=== PATIENT | female | born 1950 | race Caucasian/White ===

== ENCOUNTER 2019-12-05 08:52 | Outpatient (CLI) | payer MEDICARE, SELFPAY ==
--- NOTE | ~2019-12-05 | MM_ITS ---
EXAMINATION: MM screening santhosh BI w fracisco HISTORY: Screening mammogram, history of right breast cancer TECHNIQUE: Craniocaudal and mediolateral oblique 3-D tomosynthesis images were obtained and synthetic 2-D images were generated. CAD analysis was submitted and interpreted. COMPARISON: 11/25/2018, 11/23/2017, 11/16/2016 BREAST PARENCHYMAL COMPOSITION: There are scattered areas of fibroglandular density. FINDINGS: There are stable lumpectomy changes of the right breast. There is no evidence of suspicious mass, calcification, or architectural distortion to suggest malignancy in either breast. There has b een no suspicious interval change. IMPRESSION: 1. No mammographic evidence of malignancy. 2. Recommend routine screening mammography in one year. BI-RADS Category 2: Benign finding(s). Reviewed, dictated and finalized at location A.
== END 2019-12-05 08:53 | disposition home or self-care (01) ==
PROVIDERS: PCP Family Medicine Adolescent Medicine; Visit Provider Internal Medicine
DX: Z12.31 Encounter for screening mammogram for malignant neoplasm of breast (principal)
CPT/HCPCS: 77063; 77067

== ENCOUNTER 2020-04-01 19:11 | Emergency (ER) | payer MEDICARE, SELFPAY ==
--- NOTE | ~2020-04-01 | XR_ITS ---
XR ankle RT min 3V, XR foot RT 2V 04/01/2020 19:51 (accession [id number]), 04/01/2020 19:50 (accession [id number]) Indication: Right ankle and foot pain after injury Procedure: 3 views right ankle and 2 views right foot Comparison: No prior studies for comparison. Findings: There is an oblique nondisplaced medial malleolar fracture. Ankle mortise intact. Mild medi al soft tissue swelling. There are degenerative calcaneal enthesophytes. 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 Impression: 1: Oblique nondisplaced medial malleolar fracture. Reviewed, dictated and finalized at location A. ER TENDER Impression: 1: Oblique nondisplaced medial malleolar fracture. Impression: 1: Oblique nondisplaced medial malleolar fracture.
[2020-04-01 19:19] VITALS: BP 168/87; PULSE 82; RESP 24; TEMP 36.1; O2SAT 100
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
[2020-04-01 20:33] VITALS: BP 138/70; PULSE 78; RESP 18; O2SAT 99
== END 2020-04-01 21:23 | disposition home or self-care (01) ==
PROVIDERS: Emergency Provider Emergency Medicine; PCP Family Medicine Adolescent Medicine
DX: S51.012A Laceration without foreign body of left elbow, initial encounter (principal); S82.54XA Nondisplaced fracture of medial malleolus of right tibia, initial encounter for closed fracture; V48.4XXA Person boarding or alighting a car injured in noncollision transport accident, initial encounter
CPT/HCPCS: 12001; 29515; 73610; 73620; 99284

== ENCOUNTER 2020-10-11 12:34 | Outpatient (CLI) | payer MEDICARE, SELFPAY ==
--- NOTE | ~2020-10-11 | DEXA_ITS ---
Bone Density Report Name: Justina Russ Age: 69 Sex: Female Ethnicity: White Date of : 1950 Indication: osteopenia; prior fracture; cancer; postmenopausal Referring Provider: Sunil Jansen Study: Bone densitometry was performed. Exam Date: October 11, 2020 Accession number: [id number] Bone Density: Region BMD T-score Z-score Classification AP Spine (L1, L2, L4) 0.924 -1.0 1.1 Normal Femoral Neck (Left) 0.850 0.0 1.8 Normal Total Hip (Left) 0.994 0.4 1.9 Normal Total Hip Bilateral Avg 0.990 0.4 1.9 Normal Femoral Neck (Right) 0.863 0.1 1.9 Normal Total Hip (Right) 0.984 0.3 1.8 Normal World Health Organization criteria for BMD impression classify patients as: Normal (T-score at or above -1.0), Osteopenia (T-score between -1.0 and -2.5), or Osteoporosis (T-score at or below -2.5). 10-year Fracture Risk: FRAX not reported because: All T-scores for Spine Total, Hip Total, Femoral Neck at or above -1.0 Previous Exams: Region Exam Age BMD T-score BMD Change BMD Change Date g/cm2 vs Baseline vs Previous AP Spine(L1, L2, L4) 10/11/2020 69 0.924 -1.0 0.052(5.9%)# 0.029(3.3%)* 01/20/2016 65 0.895 -1.3 0.023(2.6%)# 0.023(2.6%)# 05/20/2011 60 0.872 -1.5 Total Hip(Left) 10/11/2020 69 0.994 0.4 0.026(2.7%)# 0.030(3.1%)* 01/20/2016 65 0.964 0.2 -0.004(-0.4%)# -0.004(-0.4%)# 05/20/2011 60 0.968 0.2 Total Hip(Right) 10/11/2020 69 0.984 0.3 0.032(3.3%)# 0.011(1.1%) 01/20/2016 65 0.973 0.3 0.021(2.2%)# 0.021(2.2%)# 05/20/2011 60 0.953 0.1 *Denotes significance at 95% confidence level, LSC for AP Spine = 0.022 g/cm2, LSC for Total Hip = 0.027 g/cm2 Clinical Information Provided by Patient: Has had a low trauma fracture Has used the following medications: Vitamin D, Calcium Has the following medical conditions: Cancer Patient maximum height was 65 Menopause Age: 50 Onset of menses at age 13 Number of children 0 Impression: The patient has normal bone mass. The patient has risk factors, including: previous fracture. No significant bone loss was observed. Discussion: BONE DENSITY IS ABOVE THE MINIMUM DESIRABLE LEVEL AT ALL SKELETAL SITES TESTED. This patient?s bone mineral density is above the minimum desirable level (T-score -1.0 or better) at all sites measured. The patient should follow a healthful lifestyle (good nutrition with adequate calcium and vitamin D, and appropriate w
== END 2020-10-11 12:35 | disposition home or self-care (01) ==
PROVIDERS: PCP Family Medicine Adolescent Medicine; Visit Provider Family Medicine Adolescent Medicine
DX: Z78.0 Asymptomatic menopausal state (principal)
CPT/HCPCS: 77080

== ENCOUNTER → 2020-10-29 14:36 | Outpatient (CLI) | payer MEDICARE, SELFPAY ==
--- NOTE | ~2020-10-29 | XR_ITS ---
XR chest 2V DATE: 10/29/2020 15:04 INDICATION: Cough TECHNIQUE: PA and lateral views COMPARISON: 03/26/2012 2 view chest FINDINGS: Normal heart size. There is aortic unfolding. No hilar or mediastinal enlargement. No pulmonary infiltrate or consolidation, pulmonary vascular congestion or pleural effusion or pneumo thorax. Smaller right breast size and right axillary surgical clips consistent with right partial mastectomy and right axillary node dissection. IMPRESSION: No active cardiopulmonary disease Reviewed, dictated and finalized at location A.
== END ==
PROVIDERS: PCP Family Medicine Adolescent Medicine; Visit Provider Physician Assistant
DX: R05 Cough (principal)
CPT/HCPCS: 71046

== ENCOUNTER 2020-12-06 09:30 | Outpatient (CLI) | payer MEDICARE, SELFPAY ==
--- NOTE | ~2020-12-06 | MM_ITS ---
EXAMINATION: MM screening santhosh BI w fracisco HISTORY: Screening mammogram, history of right breast cancer TECHNIQUE: Craniocaudal and mediolateral oblique 3-D tomosynthesis images were obtained and synthetic 2-D images were generated. CAD analysis was submitted and interpreted. COMPARISON: 12/05/2019, 11/25/2018, 11/23/2017 BREAST PARENCHYMAL COMPOSITION: There are scattered areas of fibroglandular density. FINDINGS: Again noted are stable lumpectomy changes of the right breast. There is no evidence of susp icious mass, calcification, or architectural distortion to suggest malignancy in either breast. There has been no suspicious interval change. IMPRESSION: 1. No mammographic evidence of malignancy. 2. Recommend routine screening mammography in one year. BI-RADS Category 2: Benign finding(s). Reviewed, dictated and finalized at location A.
== END 2020-12-06 09:31 | disposition home or self-care (01) ==
LOC: ANHIMG 09:34
PROVIDERS: PCP Family Medicine Adolescent Medicine; Visit Provider Family Medicine Adolescent Medicine
DX: Z12.31 Encounter for screening mammogram for malignant neoplasm of breast (principal)
CPT/HCPCS: 77063; 77067

== ENCOUNTER 2021-06-17 23:57 | Emergency (ER) | payer MEDICARE, SELFPAY ==
--- NOTE | ~2021-06-17 | XR_ITS ---
EXAMINATION: XR chest 2V DATE: 06/18/2021 00:44 INDICATION: Chest pain. TECHNIQUE: Frontal and lateral views of the chest were obtained. COMPARISON: Chest 2 views 03/26/2012, chest CT 06/18/2021 FINDINGS: There is mild scarring at the lung apices. No pleural effusion or pneumothorax. The heart s ize is normal. There are surgical clips in right axilla. IMPRESSION: 1. Mild scarring at the lung apices. Reviewed, dictated and finalized at location A. RVISOR BRINE
--- NOTE | ~2021-06-17 | CT_ITS ---
EXAMINATION: CTA chest abdomen pelvis DATE: 06/18/2021 01:29 INDICATION: Chest pain. TECHNIQUE: Computed tomographic angiography (CTA) of the chest, abdomen, and pelvis was performed wit h 100 mL Omnipaque-350 intravenous contrast. Automated exposure control and iterative reconstruction technique were employed. The dose-length product was 779.28 mGy-cm. Maximum intensity projection 3D-r econstructions of the aorta and other arteries were constructed by the technologist on a separate wor kstation. COMPARISON: None. FINDINGS: CHEST CTA: The lungs demonstrate mild atelectasis. No pleural effusion. There are nodules in the thyroid measuri ng up to 11 mm, likely not clinically significant. The heart size is normal. No pericardial effusion. There is mild aortic atherosclerosis. There is no pulmonary embolus. There is moderate thoracic spon dylosis. There is mild chronic anterior wedging of multiple vertebral bodies. There is a benign bone island in T3 vertebral body. ABDOMEN AND PELVIS CTA: The liver, gallbladder, spleen, pancreas, and adrenal glands are normal. There is cortical thinning o f the kidneys. There is diverticulosis of the colon without evidence of diverticulitis. There are no dilated loops of bowel. The appendix is normal. There is mild aortic atherosclerosis. There is no sig nificant stenosis of celiac axis, superior mesenteric artery, the renal arteries, or inferior mesente garth artery. There are no pathologically enlarged lymph nodes. There is a calcified fibroid in the [place]. There is no free intraperitoneal fluid. There is severe lumbar spondylosis. IMPRESSION: 1. Mild aortic atherosclerosis. No aneurysm or dissection. Reviewed, dictated and finalized at location A. N TO SWIM INSTRUCTOR
[2021-06-17 23:59] VITALS: BP 186/120; PULSE 115; RESP 18; TEMP 36.6; O2SAT 100
--- NOTE | 2021-06-18 00:06 | ECG_ITS ---
Measurements Intervals [place] Rate: 63 P: 24 UT: 146 QRS: -42 QRSD: 118 T: 107 QT: 415 QTc: 427 Interpretive Statements SINUS RHYTHM WITH OCCASIONAL SUPRAVENTRICULAR PREMATURE COMPLEXES LEFT AXIS DEVIATION [QRS AXIS < -30] PATTERN CONSISTENT WITH PULMONARY DISEASE LEFT VENTRICULAR HYPERTROPHY AND ST-T CHANGE [VOLTAGE CRITERIA PLUS ST/T ABNORMALITY] POSSIBLE SEPTAL MYOCARDIAL INFARCTION , OF INDETERMINATE AGE [30 ms Q WAVE IN V1/V2] ABNORMAL ECG NO PREVIOUS ECG AVAILABLE FOR COMPARISON Electronically Signed On 06-18-2021 13:13:52 PERFORMANCE ARCHITECT by Gonsalo Miranda M.D.
[2021-06-18] MEDS: ASPIRIN 81 MG CHEWABLE TABLET 324 MG PO (00:16)
[2021-06-18 00:31] LABS: Basophils Absolute Auto 0.1 K/mm3 (0.0-0.1); Eosinophils Absolute Auto 0.3 K/mm3 (0-0.3); Eosinophils Percent Auto 3.2 % (0-4.4); Hematocrit 46.9 % (37.0-47.0); Hemoglobin 15.5 g/dL (12.0-15.0); Immature Granulocyte Absolute 0.02 K/mm3 (0.00-0.031); Immature Granulocyte Percent A 0.2 % (0-0.5); Lymphocytes Absolute Auto 3.93 K/mm3 (0.9-3.2); Lymphocytes Percent Auto 48.3 % (18.3-44.2); Mean Corpuscular Hemoglobin 29.8 pg (26-34); Mean Corpuscular Volume 90.2 fl (80-100); Mean Platelet Volume 10.1 fl (7.4-10.4); Monocytes Absolute Auto 0.7 K/mm3 (0.1-0.6); Monocytes Percent Auto 8.8 % (2.6-8.5); Neutrophils Absolute Auto 3.1 K/mm3 (1.3-6.7); Neutrophils Percent Auto 38.5 % (45.5-73.1); Platelet Count Result 363 k/mm3 (150-375); Red Cell Distribution Width 13.5 % (11.5-14.5); White Blood Count 8.1 K/mm3 (4.5-10.0)
[2021-06-18 00:39] LABS: Partial Thromboplastin Time 25.7 SECONDS (22.3-36.8); Prothrombin Time 12.3 Seconds (11.1-14.7)
[2021-06-18 00:40] LABS: Alanine Aminotransferase 25 U/L (4-35); Albumin Level 4.8 g/dL (3.5-5.1); Alkaline Phosphatase 87 U/L (38-126); Anion Gap 7 mmol/L (8-16); Aspartate Amino Transferase 34 U/L (14-36); Bilirubin,Total 0.5 mg/dL (0.2-1.3); Blood Urea Nitrogen 16 mg/dL (7-17); Carbon Dioxide 33 mmol/L (22-30); Chloride 96 mmol/L (98-107); Estimated CRCL calculation 79 ml/min; Estimated Glomerular Filt Rate > 60; Glucose 108 mg/dL (65-110); Lipase 79 U/L (23-300); Potassium 3.4 mmol/L (3.4-5.0); Sodium 136 mmol/L (137-145)
[2021-06-18 00:45] VITALS: BP 181/87; PULSE 71; RESP 15; O2SAT 97
[2021-06-18 00:51] LABS: Troponin I < 0.012 ng/mL (0.000-0.034)
--- NOTE | 2021-06-18 00:59 | ED.CHESTPAIN ---
HPI - Chest Pain General Chief Complaint: Chest Pain Stated Complaint: chest pain Time Seen by Provider: 06/18/21 00:22 Source: patient and RN notes reviewed Mode of arrival: ambulatory Limitations: no limitations History of Present Illness HPI narrative: This is a 70 year old female with history of remote Breast CA and hypertension who presents for evaluation of left chest pain. She states around 8 pm she developed stabbing left anterior chest pain. Patient has been intermittent and last for seconds. She states she feels like something is not right. But she denies nausea, vomiting, fever, cough, dizziness or shortness of breath. She denies history of similar pain. She also noticed that her blood pressure was elevated at home. She only takes hydrochlorothiazid for her hypertension. She does not have pain now but she had pain a few minutes ago. Related Data Home Medications Medication Instructions Recorded Confirmed calcium carbonate-vitamin D3 tablet 04/01/20 06/12/20 [Calcium + D] hydrochlorothiazide 04/01/20 06/12/20 multivit with min-folic acid 1 tablet PO DAILY 04/01/20 06/12/20 [Centrum Adult 50 Fresh-Fruity] nepafenac [Nevanac] 1 drp OPHTHALMIC (EYE) TID 04/01/20 06/12/20 ascorbate calcium (vitamin C) 500 500 mg PO DAILY 04/03/20 06/12/20 mg tablet Allergies Allergy/AdvReac Type Severity Reaction Status Date / Time Sulfa (Sulfonamide Allergy Mild HIVES Verified 06/18/21 00:16 Antibiotics) sulfur dioxide Allergy Unknown Unknown Verified 06/18/21 00:16 Review of Systems Review of Systems: All systems reviewed & are unremarkable except as noted in HPI and below PMFSH Past Medical History Medical History (Updated 06/18/21 @ 04:10 by Dia Nation MD) Breast cancer Closed fracture of medial malleolus of right tibia with routine healing Hypertension Wears glasses Surgical History Surgical History History of breast biopsy 1985 & 1993 History of D&C 1984 & 2001 History of lumpectomy 1999 History of tonsillectomy 1956 Family History Family History Father Hypertension Family history of malignant neoplasm of esophagus Sibling Hypertension Mother Family history of heart disease in male family member before age 55 Other Esophageal cancer Family history of cardiovascular disease Social History Social History Smoking packs per day: 0.5 Smoking cigarettes per day: 10.0 Years smoked: 20 Smoking pack-years: 10.00 Smoking end date: 04/12/99 Alcohol intake: current Drinks per week: 3 Substance use: never Substance use type: does not use Gender identity (if verbalized by the patient): Female Sexual Orientation (if Verbalized by the Patient): Straight or Heterosexual Exam Const: General: no acute distress and alert Eyes: EOM: EOMs intact bilaterally Chest: Chest palpation & inspection: normal inspection of the chest Resp: Effort & Inspection: normal respiratory effort and no retractions Auscultation: clear to auscultation bilaterally Cardio: Rate: regular rate Rhythm: regular rhythm Heart sounds: no murmurs GI: GI Palp: Yes Soft to palpation, No Tenderness to palpation present (GI) and No Guarding due to palpation present (GI) Auscultation: normal bowel sounds Back/Spine/Pelvis: Back: no CVA tenderness Skin: General skin exam: normal color Rashes: no rashes Neuro: General: patient oriented x3, moves all extremities and CN's II-XI intact bilaterally Psych: Mental Status: mental status grossly normal Affect: normal affect Course Reevaluation(s) Reevaluation #1: Patient's pain is atypical and not anginal. She denies any pain. BP has improved. I discussed with patient follow up with PCP for further evaluation. Date: 06/18/21 Time: 04:04 Vital Signs Vital sig
[2021-06-18 01:44] VITALS: BP 196/108; PULSE 62; RESP 12; O2SAT 96
[2021-06-18] MEDS: hydrALAZINE HCL 20 MG/ML VIAL 10 MG IV PUSH (01:51)
[2021-06-18 02:08] VITALS: BP 156/92; PULSE 70; RESP 13; O2SAT 99
[2021-06-18 02:43] VITALS: BP 165/93
[2021-06-18 03:45] LABS: Troponin I 0.014 ng/mL (0.000-0.034)
[2021-06-18 04:02] VITALS: BP 147/96; PULSE 67; RESP 18; O2SAT 97
[2021-06-18 04:13] VITALS: BP 144/74; PULSE 74; RESP 20; TEMP 36.3; O2SAT 99
== END 2021-06-18 04:25 | disposition home or self-care (01) ==
PROVIDERS: Emergency Provider General Practice; PCP Family Medicine Adolescent Medicine
DX: R07.89 Other chest pain (principal); R03.0 Elevated blood-pressure reading, without diagnosis of hypertension; Z85.3 Personal history of malignant neoplasm of breast; I10 Essential (primary) hypertension; Z87.891 Personal history of nicotine dependence; I49.3 Ventricular premature depolarization; R94.31 Abnormal electrocardiogram [ECG] [EKG]; I51.7 Cardiomegaly; I70.0 Atherosclerosis of aorta
CPT/HCPCS: 36415; 71046; 71275; 74174; 80053; 83690; 84484; 85025; 85610; 85730; 93005; 96374; 99284; A9270; J0360; Q9967

== ENCOUNTER 2022-01-26 08:33 | Outpatient (CLI) | payer MEDICARE, SELFPAY ==
--- NOTE | ~2022-01-26 | MM_ITS ---
EXAMINATION: MM screening santhosh BI w fracisco HISTORY: Screening TECHNIQUE: Craniocaudal and mediolateral oblique 3-D tomosynthesis images were obtained and synthetic 2-D images were generated. CAD analysis was submitted and interpreted. COMPARISON: Comparison to multiple prior studies sequentially, with oldest reviewed study dated 04/2015. BREAST PARENCHYMAL COMPOSITION: Breast composed of scattered areas of fibroglandular density FINDINGS: There is developing focal asymmetry in the upper outer quadrant of the right breast with po ssible architectural distortion. The left breast is stable without evidence for malignancy. IMPRESSION: 1. Developing focal asymmetry, upper outer quadrant. 2. Additional mammographic views and possible breast ultrasound are recommended. BI-RADS Category 0: Incomplete: Needs additional imaging evaluation. Reviewed, dictated and finalized at location A. IMPRESSION: 1. Developing focal asymmetry, upper outer quadrant. 2. Additional mammographic views and possible breast ultrasound are recommended . BI-RADS Category 0: Incomplete: Needs additional imaging evaluation.
== END 2022-01-26 08:34 | disposition home or self-care (01) ==
LOC: ANHIMG 08:34
PROVIDERS: PCP Family Medicine Adolescent Medicine; Visit Provider Family Medicine Adolescent Medicine
DX: Z12.31 Encounter for screening mammogram for malignant neoplasm of breast (principal); R92.8 Other abnormal and inconclusive findings on diagnostic imaging of breast
CPT/HCPCS: 77063; 77067

== ENCOUNTER 2022-02-02 11:18 | Outpatient (CLI) | payer MEDICARE, SELFPAY ==
--- NOTE | ~2022-02-02 | MMUS_ITS ---
EXAMINATION: MM diagnostic santhosh RT w fracisco, US breast RT limited HISTORY: Right breast asymmetry on screening mammogram TECHNIQUE: Additional 3-D tomosynthesis images of the right breast were performed and synthetic 2-D i mages were generated. CAD analysis was submitted and interpreted. High resolution limited right breas t ultrasound was performed. COMPARISON: 01/26/2022, 12/06/2020, 12/05/2019, 11/25/2018 FINDINGS: MAMMOGRAPHIC FINDINGS: There is questionable subtle architectural distortion in middle third of the upper outer quadrant of the breast at the 10:00 location approximately 5 cm from the nipple without definite associated mass or calcification. On some images, the appearance is similar to older prior comparison mammograms and the finding somewhat disperses with spot compression. ULTRASOUND: There is no evidence of focal abnormal solid or cystic mass in the vicinity of the mammographic findi ng in question. IMPRESSION: 1. Probably benign findings of the right breast. 2. Recommend 6 month follow-up right diagnostic mammogram and possible ultrasound. BI-RADS category 3, probably benign findings. Reviewed, dictated and finalized at location A. IMPRESSION: 1. Probably benign findings of the right breast. 2. Recommend 6 month follow-up right diagnostic mammogram and possible ultrasou nd. BI-RADS category 3, probably benign findings.
== END 2022-02-02 11:19 | disposition home or self-care (01) ==
LOC: ANHIMG 11:19
PROVIDERS: PCP Family Medicine Adolescent Medicine; Visit Provider Family Medicine Adolescent Medicine
DX: R92.8 Other abnormal and inconclusive findings on diagnostic imaging of breast (principal)
CPT/HCPCS: 76642; 77061; 77065; G0279

== ENCOUNTER 2022-08-10 12:15 | Outpatient (CLI) | payer MEDICARE, SELFPAY ==
--- NOTE | ~2022-08-10 | MMUS_ITS ---
EXAMINATION: MM diagnostic santhosh RT w fracisco, US breast RT limited HISTORY: Six-month follow-up for probably benign possible right breast architectural distortion TECHNIQUE: Craniocaudal, mediolateral, and mediolateral oblique 3-D tomosynthesis images of the right breast were performed and synthetic 2-D images were generated. Spot compression views are also obtai matthias. CAD analysis was submitted and interpreted. High resolution right breast ultrasound was performe d. COMPARISON: Prior mammograms dating back to 11/23/2017 BREAST PARENCHYMAL COMPOSITION: There are scattered areas of fibroglandular density. FINDINGS: MAMMOGRAPHIC FINDINGS: Again seen is a stable, chronic area of possible architectural distortion in the middle third of the upper outer quadrant of the breast at the 10:00 location approximately 5 cm from the nipple. There juarez s been no suspicious interval change. No suspicious mass or calcification are identified. ULTRASOUND: There is no evidence of focal abnormal solid or cystic mass in the vicinity of the mammographic findi ng in question. IMPRESSION: 1. Probably benign right breast findings. 2. Recommend 6 month follow-up diagnostic mammogram and possible ultrasound. BI-RADS category 3, probably benign findings. Reviewed, dictated and finalized at location A. IMPRESSION: 1. Probably benign right breast findings. 2. Recommend 6 month follow-up diagnostic mammogram and possible ultrasound. BI-RADS category 3, probably benign findings.
== END 2022-08-10 12:16 | disposition home or self-care (01) ==
LOC: ANHIMG 12:17
PROVIDERS: PCP Family Medicine Adolescent Medicine; Visit Provider Family Medicine Adolescent Medicine
DX: R92.8 Other abnormal and inconclusive findings on diagnostic imaging of breast (principal)
CPT/HCPCS: 76642; 77061; 77065; G0279

== ENCOUNTER 2023-03-19 12:36 | Outpatient (CLI) | payer MEDICARE, SELFPAY ==
--- NOTE | ~2023-03-19 | MMUS_ITS ---
EXAMINATION: MM diagnostic santhosh BI w fracisco, US breast RT limited HISTORY: Six-month follow-up for probably benign possible right breast architectural distortion. TECHNIQUE: Craniocaudal, mediolateral, and mediolateral oblique 3-D tomosynthesis images of the asifas ts were performed and synthetic 2-D images were generated. CAD analysis was submitted and interpreted . High resolution limited right breast ultrasound was performed. COMPARISON: Prior mammograms dating back to 11/25/2018 BREAST PARENCHYMAL COMPOSITION: There are scattered areas of fibroglandular density. FINDINGS: MAMMOGRAPHIC FINDINGS: Left breast: No suspicious mass, calcification, or architectural distortion are identified to suggest malignancy. There has been no suspicious interval change. Right breast: There are stable lumpectomy changes of the right breast. In addition, there is an area of subtle, stable chronic architectural distortion in the middle third of the upper outer quadrant of the breast at the 10:00 location, 5 cm from the nipple, considered benign given the interval stabili ty. ULTRASOUND: There is no suspicious cystic or solid mass in the vicinity of the mammographic finding in question i n the right breast. A simple cyst is noted at the 10:00 location, 3 cm from the nipple. IMPRESSION: 1. No mammographic or sonographic evidence of malignancy. 2. Recommend routine screening mammography in one year. BI-RADS Category 2: Benign finding(s). Reviewed, dictated and finalized at location A. NTIFIC EDITOR IMPRESSION: 1. No mammographic or sonographic evidence of malignancy. 2. Recommend routine screening mammography in one year. BI-RADS Category 2: Benign finding(s).
== END 2023-03-19 12:37 | disposition home or self-care (01) ==
LOC: ANHIMG 12:38
PROVIDERS: PCP Family Medicine Adolescent Medicine; Visit Provider Family Medicine Adolescent Medicine
DX: R92.8 Other abnormal and inconclusive findings on diagnostic imaging of breast (principal)
CPT/HCPCS: 76642; 77062; 77066; G0279

== ENCOUNTER 2023-11-12 00:28 | Emergency (ER) | payer MEDICARE, SELFPAY ==
--- NOTE | ~2023-11-12 | XR_ITS ---
Right Knee Technique: AP, lateral, and oblique views were obtained. Clinical History: Pain Findings: No fracture or dislocation is seen. Osseous alignment is anatomic. Minimal degenerative spu rring of the patella and medial joint line and intercondylar notch. Soft tissues are unremarkable. No joint effusion is seen. Impression: Minimal degenerative spurring, as above. Reviewed, dictated and finalized at location . Impression: Minimal degenerative spurring, as above.
[2023-11-12 00:31] VITALS: BP 175/96; PULSE 79; RESP 18; TEMP 36.3; O2SAT 99
--- NOTE | 2023-11-12 04:25 | ED.GENADULT ---
HPI - General Adult General Chief complaint: Extremity Problem,Nontraumatic Stated complaint: knee pain Time Seen by Provider: 11/12/23 04:21 History of Present Illness HPI narrative: Patient 72-year-old female who presents emergency department with chief complaint of right knee pain. The patient reports that she felt pop in her knee and reports tonight and reports that since then she has not been able to bear weight the patient reports the last 4 days she has had a discomfort feeling in the back of the knee the patient reports no trauma does report that she has had a prior injury to the right ankle and actually has a walker at home for that the patient reports that she has no pain in the calf no pain in the thigh Related Data Home Medications Medication Instructions Recorded Confirmed calcium carbonate 600 mg-vitamin tablet 04/01/20 03/23/23 D3 5 mcg (200 unit) tablet multivitamin with minerals-folic 1 tablet PO DAILY 04/01/20 03/23/23 acid 120 mcg chewable tablet (Centrum Adult 50 Plus Fresh-Fruity) ketorolac 0.4 % eye drops 1 drp LEFT EYE .Q3days 11/20/22 03/23/23 Allergies Allergy/AdvReac Type Severity Reaction Status Date / Time Sulfa (Sulfonamide Allergy Mild HIVES Verified 03/23/23 10:35 Antibiotics) sulfur dioxide Allergy Mild Hives Verified 03/23/23 10:35 Review of Systems Review of Systems: A 10 system review of systems was completed on the patient and is negative except for what is stated in the HPI. Nursing and ancillary documentation was reviewed. [facility] Past Medical History Medical History Breast cancer (~1999) Closed fracture of medial malleolus of right tibia with routine healing Encounter for Papanicolaou smear for cervical cancer screening Hypertension Normal colonoscopy 12/29 Repeat 01/08 Pleurisy (~2006) Uterine fibroid Wears glasses Surgical History Surgical History History of breast biopsy 01/19/86 07/11/93 History of dilation and curettage 08/04/84 01/10/03 hscope d&c--endometrial hypertrophy, cervical stenosis, intramural fibroid History of lumpectomy (~01/27/20) History of tonsillectomy (~1956) Family History Family History Father Hypertension Family history of malignant neoplasm of esophagus Esophageal cancer Sibling Hypertension Colon polyp Mother Family history of heart disease in male family member before age 55 Family history of cardiovascular disease Other Breast cancer Aunts Diabetes mellitus maternal aunt Sibling Hypertension Grandparent Diabetes mellitus maternal grandfather Social History Social History Smoking packs per day: 0.5 Smoking cigarettes per day: 10.0 Years smoked: 20 Smoking pack-years: 10.00 Smoking status: Former smoker Tobacco type: cigarettes Second hand tobacco smoke exposure: No Smoking end date: 04/12/99 Alcohol intake: current Drinks per week: 3 Alcohol use details: social Substance use: never Substance use type: does not use Lack of Transportation: No Lack of Food: Never True Current Housing: I Have Housing Concerned About Future Housing: No Difficulty Paying Gas/Electric Bills: No Difficulty Paying for Meds: No Currently Unemployed: No Education: Associate Degree Difficulty w/ Childcare or Family Care: No Living arrangements: other Additional living arrangements comments: Occupation/Education: retired Gender identity (if verbalized by the patient): Female Sexual Orientation (if Verbalized by the Patient): Straight or Heterosexual Spiritual care concerns: No Agree to blood products: Yes Exam Narrative: GENERAL: Well-appearing, well-nourished, and in no acute dist
[2023-11-12 04:49] VITALS: BP 150/86; PULSE 69; RESP 16; TEMP 36.5; O2SAT 99
== END 2023-11-12 04:50 | disposition home or self-care (01) ==
LOC: ANHED 04:31
PROVIDERS: Emergency Provider Emergency Medicine; PCP Family Medicine Adolescent Medicine
DX: M23.91 Unspecified internal derangement of right knee (principal); I10 Essential (primary) hypertension; Z85.3 Personal history of malignant neoplasm of breast; Z87.891 Personal history of nicotine dependence
CPT/HCPCS: 73562; 99283

== ENCOUNTER 2024-02-18 00:48 | Day surgery (SDC) | payer MEDICARE, SELFPAY ==
[2024-02-07 15:42] VITALS: BMI 27.1
[2024-02-18 07:16] VITALS: BP 133/81; PULSE 64; RESP 20; TEMP 35.9; O2SAT 96; BMI 29.0
[2024-02-18] MEDS: LACTATED RINGERS 1,000 ML 150 ML IV CONT (07:30)
--- NOTE | 2024-02-18 07:51 | P.PNAN_ITS ---
Anes - Initial Pre Proc Eval Procedure: Operation Date: 02/18/24 08:30 Proposed Procedures p Colonoscopy - Isaac Pascal MD Date/Time: 02/18/24 07:51 Surgeon: Isaac Pascal MD Pre Op Diagnosis: hx colon polyps Patient Data Age: 73 Gender: F Height: 1.65 m Weight: 79.3 kg Last Vital Signs Temp 35.9 C L 02/18/24 07:16 Pulse 64 02/18/24 07:16 Resp 20 02/18/24 07:16 BP 133/81 02/18/24 07:16 Pulse Ox 96 02/18/24 07:16 O2 Del Method Room Air 02/18/24 07:16 Allergies Allergy/AdvReac Type Severity Reaction Status Date / Time Sulfa (Sulfonamide Allergy Mild HIVES Verified 02/18/24 07:15 Antibiotics) sulfur dioxide Allergy Mild Hives Verified 02/18/24 07:15 Home Medications Medication Instructions Recorded Confirmed Type calcium 600 mg (as 3 tablet PO DAILY 04/01/20 02/18/24 History carbonate)-vitamin D3 5 mcg (200 unit) tablet multivitamin with minerals-folic 1 tablet PO DAILY 04/01/20 02/18/24 History acid 120 mcg chewable tablet (Centrum Adult 50 Plus Fresh-Fruity) hydrochlorothiazide 25 mg tablet See Rx Instructions .Route 06/23/23 02/18/24 Rx .COMPLEX #90 tabs crgursbngvrinxoochlyyx-vddnfsjl-hfpxyyui 1 drp EACH EYE QAM AND QHS 11/18/23 02/18/24 History 80 0.5 %-1 %-0.5 % eye drops (Refresh Optive Advanced) lisinopril 10 mg tablet See Rx Instructions .Route 12/31/23 02/18/24 Rx .COMPLEX #90 tabs Patient hx anesthesia problems: none Family hx anesthesia problems: none Results Review: All pre-operative results and documents have been reviewed as part of the pre- operative evaluation. ON LICENSE OF [facility] Past Medical History Medical History (Updated 11/22/23 @ 06:47 by Sunil Jansen MD) Breast cancer (~1999) Closed fracture of medial malleolus of right tibia with routine healing Encounter for Papanicolaou smear for cervical cancer screening Hypertension Normal colonoscopy 12/29 Repeat 01/08 Pleurisy (~2006) Uterine fibroid Wears glasses Surgical History Surgical History History of breast biopsy 01/19/86 07/11/93 History of dilation and curettage 08/04/84 01/10/03 hscope d&c--endometrial hypertrophy, cervical stenosis, intramural fibroid History of lumpectomy (~01/27/20) History of tonsillectomy (~1955) Family History Family History Father Hypertension Family history of malignant neoplasm of esophagus Esophageal cancer Sibling Hypertension Colon polyp Mother Family history of heart disease in male family member before age 55 Family history of cardiovascular disease Other Breast cancer Aunts Diabetes mellitus maternal aunt Sibling Hypertension Grandparent Diabetes mellitus maternal grandfather Social History Social History Smoking packs per day: 0.5 Smoking cigarettes per day: 10.0 Years smoked: 20 Smoking pack-years: 10.00 Smoking status: Former smoker Tobacco type: cigarettes Second hand tobacco smoke exposure: No Smoking end date: 04/12/99 Alcohol intake: current Drinks per week: 4 Alcohol use details: social Substance use: never Substance use type: does not use Lack of Transportation: No Lack of Food: Never True Current Housing: I Have Housing Concerned About Future Housing: No Difficulty Paying Gas/Electric Bills: No Difficulty Paying for Meds: No Currently Unemployed: No Education: Associate Degree Difficulty w/ Childcare or Family Care: No Living arrangements: with family Additional living arrangements comments: Occupation/Education: retired Gender identity (if verbalized by the patient): Female Sexual Orientation (if Verbalized by the Patient): Straight or Heterosexual Spiritual care concerns: No Agree to blood products: Yes Anes - Eval Final PreProcedure Day of Procedure 02/18/24 07:51 Patient weight: overweight Heart: regular rate and rhythm Lungs: clear to auscultation Airway: Mallampati scale class III Neurological: alert and oriented Last oral intake: >/= 8 hours ASA classification: II Emergent: no Anesthetic plan: proceed Anesthesia type and monitoring: general GIVS and standard monitoring Results Review: All pre-operative results and documents have been reviewed as part of the pre- operative evaluation. Informed Consent: The patient's anesthetic plan and its attendant risks and benefits were discussed with the patient/family/POA. Questions were solicited and answers provided to the satisfaction of the patient/family/POA.
[2024-02-18 09:06] VITALS: BP 121/73; PULSE 64; RESP 14; O2SAT 99
[2024-02-18 09:16] VITALS: BP 108/75; PULSE 63; RESP 20; O2SAT 99
[2024-02-18 09:26] VITALS: BP 127/78; PULSE 60; RESP 22; O2SAT 99
--- NOTE | 2024-02-21 11:45 | PM.IMHP ---
H&P: HPI History of Present Illness Date/Time: 02/21/24 11:45 Chief Complaint: Screening colonoscopy Review of Systems Review of Systems: All systems reviewed & are unremarkable except as noted in HPI and below [facility] Past Medical History Medical History (Updated 11/22/23 @ 06:47 by Sunil Jansen MD) Breast cancer (~1999) Closed fracture of medial malleolus of right tibia with routine healing Encounter for Papanicolaou smear for cervical cancer screening Hypertension Normal colonoscopy 12/29 Repeat 01/08 Pleurisy (~2006) Uterine fibroid Wears glasses Surgical History Surgical History History of breast biopsy 01/19/86 07/11/93 History of dilation and curettage 08/04/84 01/10/03 hscope d&c--endometrial hypertrophy, cervical stenosis, intramural fibroid History of lumpectomy (~01/27/20) History of tonsillectomy (~1955) Family History Family History Father Hypertension Family history of malignant neoplasm of esophagus Esophageal cancer Sibling Hypertension Colon polyp Mother Family history of heart disease in male family member before age 55 Family history of cardiovascular disease Other Breast cancer Aunts Diabetes mellitus maternal aunt Sibling Hypertension Grandparent Diabetes mellitus maternal grandfather Social History Social History Smoking packs per day: 0.5 Smoking cigarettes per day: 10.0 Years smoked: 20 Smoking pack-years: 10.00 Smoking status: Former smoker Tobacco type: cigarettes Second hand tobacco smoke exposure: No Smoking end date: 04/12/99 Alcohol intake: current Drinks per week: 4 Alcohol use details: social Substance use: never Substance use type: does not use Lack of Transportation: No Lack of Food: Never True Current Housing: I Have Housing Concerned About Future Housing: No Difficulty Paying Gas/Electric Bills: No Difficulty Paying for Meds: No Currently Unemployed: No Education: Associate Degree Difficulty w/ Childcare or Family Care: No Living arrangements: with family Additional living arrangements comments: Occupation/Education: retired Gender identity (if verbalized by the patient): Female Sexual Orientation (if Verbalized by the Patient): Straight or Heterosexual Spiritual care concerns: No Agree to blood products: Yes Meds Home Medications and Allergies Home Medications Medication Instructions Recorded Confirmed Type calcium 600 mg (as 3 tablet PO DAILY 04/01/20 02/18/24 History carbonate)-vitamin D3 5 mcg (200 unit) tablet multivitamin with minerals-folic 1 tablet PO DAILY 04/01/20 02/18/24 History acid 120 mcg chewable tablet (Centrum Adult 50 Plus Fresh-Fruity) hydrochlorothiazide 25 mg tablet See Rx Instructions .Route 06/23/23 02/18/24 Rx .COMPLEX #90 tabs afmmgbdlchzfovcbkuwnvd-hobverka-efbcmool 1 drp EACH EYE QAM AND QHS 11/18/23 02/18/24 History 80 0.5 %-1 %-0.5 % eye drops (Refresh Optive Advanced) lisinopril 10 mg tablet See Rx Instructions .Route 12/31/23 02/18/24 Rx .COMPLEX #90 tabs Allergies Allergy/AdvReac Type Severity Reaction Status Date / Time Sulfa (Sulfonamide Allergy Mild HIVES Verified 02/18/24 07:15 Antibiotics) sulfur dioxide Allergy Mild Hives Verified 02/18/24 07:15 Exam Const: General: cooperative and healthy appearing Resp: Effort & Inspection: normal respiratory effort and able to speak in complete sentences Auscultation: clear to auscultation bilaterally Cardio: Rate: regular rate Rhythm: regular rhythm GI: Inspection: normal to inspection GI Palp: No No hepatosplenomegaly present Auscultation: normal bowel sounds Rectal Exam: deferred Skin: General skin exam: normal color Psych: Appearance: grossly normal Mental Status: mental status grossly normal
== END 2024-02-18 09:37 | disposition home or self-care (01) ==
PROVIDERS: PCP Family Medicine Adolescent Medicine; Visit Provider Internal Medicine Gastroenterology
PROC: 0DJD8ZZ Inspection of Lower Intestinal Tract, Via Natural or Artificial Opening Endoscopic (ICD-10-PCS; CPT 45378; principal; 2024-02-18 08:30)
DX: Z12.11 Encounter for screening for malignant neoplasm of colon (principal); K57.30 Diverticulosis of large intestine without perforation or abscess without bleeding; Z86.0100 Personal history of colon polyps, unspecified; I10 Essential (primary) hypertension; Z85.3 Personal history of malignant neoplasm of breast; Z87.891 Personal history of nicotine dependence
CPT/HCPCS: G0105; J2003; J2704; J7120

== ENCOUNTER 2024-03-22 09:24 | Outpatient (CLI) | payer MEDICARE, SELFPAY ==
--- NOTE | ~2024-03-22 | DEXA_ITS ---
Bone Density Report Name: ALTA REYNOLDS Age: 73 Sex: Female Ethnicity: White Date of : 1950 Indication: postmenopausal; screening for osteoporosis; cancer; Referring Provider: DONOVAN LOPEZ Study: Bone densitometry was performed. Exam Date: March 22, 2024 Accession number: [id number] Bone Density: Region BMD T-score Z-score Classification AP Spine(L1-L4) 1.021 -0.2 2.1 Normal Femoral Neck (Left) 0.852 0.0 2.0 Normal Total Hip (Left) 1.067 1.0 2.7 Normal Femoral Neck (Right) 0.858 0.1 2.1 Normal Total Hip (Right) 1.069 1.0 2.7 Normal Total Hip Mean 1.068 1.0 2.7 Normal World Health Organization criteria for BMD impression classify patients as: Normal (T-score at or above -1.0), Osteopenia (T-score between -1.0 and -2.5), or Osteoporosis (T-score at or below -2.5). 10-year Fracture Risk: FRAX not reported because: All T-scores for Spine Total, Hip Total, Femoral Neck at or above -1.0 Clinical Information Provided by Patient: Has used the following medications: Vitamin D, Calcium Has the following medical conditions: Cancer Patient maximum height was 65 Onset of menses at age 13 Number of children 0 Impression: The patient has normal bone mass. Discussion: LOW RISK OF FRACTURE; BONE DENSITY IS WELL ABOVE THE MINIMUM DESIRABLE LEVEL AND ABOVE AVERAGE FOR AGE AND SEX AT ALL SKELETAL SITES TESTED. This person's bone density is above expected limits for age and sex. This is rarely clinically significant, but should be pursued if there are significant musculoskeletal complaints. The patient should follow a healthful lifestyle (good nutrition with adequate calcium and vitamin D, and appropriate weight-bearing exercise). Follow-Up: Consider repeating this study in 5 years or sooner if there is some new clinical indication. Reported by: GUADALUPE on 03/22/2024 10:36:00 AM. Reviewed, dictated and finalized at location ASushil YU
--- NOTE | ~2024-03-22 | MM_ITS ---
EXAMINATION: MM screening [facility] BI w [place] HISTORY: Screening TECHNIQUE: Craniocaudal and mediolateral oblique 3-D tomosynthesis images were obtained and synthetic 2-D images were generated. CAD analysis was submitted and interpreted. COMPARISON: Comparison to multiple prior studies sequentially, with oldest reviewed study dated 12/04. BREAST PARENCHYMAL COMPOSITION: Not dense: There are scattered areas of fibroglandular density. FINDINGS: There is no evidence of suspicious mass, calcification, or architectural distortion to sugg est malignancy in either breast. There has been no suspicious interval change. IMPRESSION: 1. No mammographic evidence of malignancy. 2. Recommend routine screening mammography in one year. BI-RADS Category 1: Negative Reviewed, dictated and finalized at location B. WALK INSPECTOR
== END 2024-03-22 09:25 | disposition home or self-care (01) ==
LOC: ANHIMG 09:28
PROVIDERS: PCP Family Medicine Adolescent Medicine; Visit Provider Family Medicine Adolescent Medicine
DX: Z12.31 Encounter for screening mammogram for malignant neoplasm of breast (principal); Z78.0 Asymptomatic menopausal state
CPT/HCPCS: 77063; 77067; 77080

== ENCOUNTER 2024-12-28 14:27 | Outpatient (CLI) | payer MEDICARE, SELFPAY ==
--- NOTE | ~2024-12-28 | XR_ITS ---
EXAMINATION: XR knee RT 3V, 12/28/2024 14:35 CDT HISTORY: M25.561 - Pain in right knee COMPARISON: No comparisons available. Findings: No acute fracture or malalignment. Moderate to severe tricompartmental degenerative changes, small effusion Soft tissues unremarkable. Impression: No acute fracture or malalignment. Reviewed, dictated and finalized at location A. Impression: No acute fracture or malalignment.
--- OUTSIDE RECORDS SUMMARY | 2024-12-28 14:32 | XMS_ITS | Clinical Summary ---
Author Organization [facility] Address [address] [address] Phone Care Team Providers Care Screw Machine Hand Name Role Phone Sunil Jansen MD Primary Care Provider + Social History Tobacco Use Types Packs/Day Years Used Date Smoking Tobacco: Never Assessed Comments Unknown Sex and Gender Information Value Date Recorded Sex Assigned at Not on file Legal Sex Female 12:25 AM CDT Gender Identity Not on file Sexual Orientation Not on file Plan of Treatment Health Maintenance Due Date Last Done Comments Hepatitis C Virus (HCV) Screening 1950 TdaP Immunization 1950 Cologuard 12/15/1995 Immunochemical Fecal Occult Blood 12/15/1995 Pneumococcal Immunization (5 0+ years) (1 of 1 - PCV) 2000 Zoster Immunization (1 of 2) 2000 SARS-COV-2 Immunization (1 - 2023-25 season) 2023 Influenza Immunization (#1) 2024 Respiratory Syncytial Virus (RSV) Immunization (Adult) (1 - 1-dose 75+ series) 2025 Colonoscopy 01/05/2026 01/05/2019 Colorectal Cancer Screening 01/05/2026 Hepatitis B Immunization Aged Out No longer eligible based on patient's age to complete this topic Human Papillomavirus (HPV) Immunization Aged Out No longer eligible b ased on patient's age to complete this topic Meningococcal Immunization (ACWY) Aged Out No longer eligible based on patient's age to complete this topic Rotavirus Immunization Aged Out No lo nger eligible based on patient's age to complete this topic Procedures Procedure Name Priority Date/Time Associated Diagnosis Comments HM COLONOSCOPY Routine 01/05/2019 from Last 3 Months or Most Recently Relevant to Health Maintenance Results * COLONOSCOPY (01/05/2019) us Jasmeet Portillo DO PROCEDURE/MINOR SURGICAL ORDERA BLES Final Result from Last 3 Months or Most Recently Relevant to Health Maintenance Care Teams Screw Machine Hand Relationship Specialty Start Date End Date Sunil Jansen MD PCP - General Family Medicine 01/12/19
--- OUTSIDE RECORDS SUMMARY | 2024-12-28 14:32 | XMS_ITS | Clinical Summary ---
Author Organization [facility] Address [address] [place] [address] Phone Care Team Providers Care Chute Builder Name Role Phone Sunil Jansen MD Primary Care Prov ider Allergies Active Allergy Reactions Criticality Noted Date Comments Sulfa (Sulfonamide Antibiotics) Rash Medium 10/2013 Medications calcium-magnes ium 300-300 mg tablet 02/09/2017Calcium & magnesium carbonate, po solid 311-232mg Tablet(s)POdailyCur rent Medication 02/10/20 17 Active hydroCHLOROthi azide (HYDRODIURIL) 25 mg tablet 02/09/2017HCTZ, po solid 25 mg TabletPOas directedCurrent Medication 02/10/20 17 Active multivit with minerals/lutei n (MULTIVITAMIN 50 PLUS ORAL) 02/09/2017Multivita min Liquid (ml)POdailyCurrent Medication 02/10/20 17 Active nepafenac (NEVANAC) 0.1 % ophthalmic suspension 02/09/2017Nevanac, drops 0.1 % Suspension, drops(final dosage form)(ml)as directedCurrent Medication 02/10/20 17 Active carboxymethylc ellulose-glyce rn 0.5-0.9 % drops Administer into affected eye(s). 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, estrogen receptor positive 02/04/2018 Cancer Staging:Pathologic stage from 01/27/2000:Stage IA(pT2, pN0(sn), cM0, G2, ER: Positive, SC: Positive, HER2: Positive) - Signed by Tino Ashley MD on 02/08/2018 Clinical: Unsigned Immunizations Immunization Administration Dates Next Due Influenza, Quadrivalent, Carlita l Culture-based MDCK, Antibiotic Free, Intramuscular 01/20/2019 Influenza, Quadrivalent, Hig h Dose, Preservative Free, Intrr 01/04/2020 Influenza, Unspecified 02/02/2018,2016,11/28/2015,11/29,11/20/2013 Pneumococcal Conjugate PCV 13 07/09/2017 Pneumococcal, Unspecified 07/09/2016 ZOSTER LIVE 11/29/2014 Surgical History Surgery Date Site/Laterality Comments BREAST BIOPSY BREAST LUMPECTOMY COLONOSCOPY Medical History Medical History Date Comments Breast cancer (HCC) Hypertension Family History Medical History Relation Name Comments Esophageal cancer Father Diabetes Maternal Grandfather Relation Name Status Comments Father (Age 69) 69 when di agnosed Maternal Grandfather Social History Tobacco Use Types Packs/Day Years Used Date Smoking Tobacco: Former Cigarettes Q uit: 1993 Smokeless Tobacco: Never Alcohol Use Standard Drinks/Week Comments Yes 0 (1 standard drink = 0.6 oz pur e alcohol) social Personal Safety Answer Date Recorded Getting School Help Needed Not on file 06/26 Comments Unknown Sex and Gender Information Value Date Recorded Sex Assigned at Not on file Legal Sex Female 12:55 PM HAND MODEL Gender Identity Not on file Sexual Orientation Not on file Obstetrics History Last Filed Vital Signs Vital Sign Reading Time Taken Comments Blood Pressure 158/104 02/07/2020 11:16 AM CDT rn notified Pulse 62 02/07/2020 11:16 AM CDT Temperature 36.4 C (97.6 F) 02/07/2020 11:16 AM CDT Respiratory Rate 16 02/07/2020 11:1 6 AM CDT Oxygen Saturation 98% 02/07/2020 11: 16 AM CDT Inhaled Oxygen Concentration - - Weight 73.4 kg (161 lb 12.8 oz) 02/07/2020 11:16 AM CDT Height 165.1 cm (5' 5) 02/07/2020 11:1 6 AM CDT Body Mass Index 26.92 02/07/2020 11:16 AM CDT Plan of Treatment Health Maintenance Due Date Last Done Comments Breast Cancer Screening-Mammogram 1950 Colon Cancer Screening-Colonoscopy 1950 Depression Screening 1950 Fall Risk Assessment 1950 Hepatitis C Screening 1950 Osteoporosis Screening-Bone Density Scan 1950 DTaP/Tdap/Td Vaccine (1 - Tdap) 1961 Hepatitis B Screening 1968 Zoster Vaccine (2 of 3) 01/24/2015 11/29/2014 Well Visit 65+ 12/15/2015 Covid-19 Vaccine (4 - 2024-2 6 season) 2024 02/03/2021, 07/06/2020, 06/09/2020 Influenza Vaccine (#1) 2024 , 01/04/2020, 01/20/2019, Additional history exists Pneumococcal vaccine 65+ Completed 018, 06/13/2017, 07/09/2016 Insurance [facility] Address: [facility] [address] [place] [address] [facility] Address: [facility] [address] [place] [address] Care Teams Chute Builder Relationship Specialty Start Date End Date Sunil Jansen MD PCP - General Family Medicine 02/08/18
== END 2024-12-28 14:28 | disposition home or self-care (01) ==
PROVIDERS: PCP Family Medicine Adolescent Medicine; Visit Provider Nurse Practitioner
DX: M25.561 Pain in right knee (principal)
CPT/HCPCS: 73562

== ENCOUNTER 2025-02-12 15:15 | Outpatient (RCR) | payer MEDICARE, SELFPAY ==
--- NOTE | 2025-01-22 15:21 | OPREHPOC ---
Outpatient Therapy Plan of Care This is a Multidisciplinary Plan of Care that may contain components documented by all disciplines (PT, OT, and ST.) PT Problem 1 PT Problem #1 Knowledge Deficit PT Goal 1 Goal / Goal Update *independent with HEP Target Visit 6 PT Problem 2 PT Problem #2 Pain PT Goal 1 Goal / Goal Update 1* pt report pain rating at the worst of 5/10 in R knee Target Visit 6 PT Problem 3 PT Problem #3 Impaired Strength PT Goal 1 Goal / Goal Update increase strength of R hip extension and adduction to 4+/5 to improve stability to knee joint Target Visit 6 PT Problem 4 PT Problem #4 Impaired Flexibility PT Goal 1 Goal / Goal Update increase hamstring length to decrease strain over knee: hamstring length with supine SLR to 75'
--- NOTE | 2025-01-22 15:21 | PTOPEVAL1 ---
Assessment and note entered by Lien Alvarado, PT Evaluation Information Assessment Status Evaluation ICD-10 Condition Codes (PT) Pain in right knee M25.561 Other ICD-10 Condition Codes ( OA of R knee PT) Onset about 1 year ago Subjective Information pulled R knee over 1 year ago, was put in immobilizer for resting knee; returned to walking and activity; had issues off/on since then; having more pain and small fluid of swelling over medial knee; x ray: moderate to severe tricompartmental degenerative changes; small effusion have not had PT for her knee; walk for fitness about 30 minutes now, used to do 45 minutes or more; activity: walk for fitness, less now due to knee pain; retired, at home with ; have 2nd floor and basement; laundry in basement and sewing room on 2nd floor; Reported Pain Level Pain Score Self Report Additional Pain Score Comments pain range of 0-7/10; medial or lateral joint and posterior knee, distal quad tendon increase pain: walking 30 minutes, stairs, sit to stand decrease pain: asper cream rub, ice, tylenol arthritis have knee brace- compression sleeve and is uncomfortable; discussed velcro brace with hinges for more comfort; Assessment PT Clinical Summary Justina Cadena has the diagnosis of R knee pain. She reports decrease in walking and stairs due to knee pain. She is retired and active, usually walks for fitness. LE functional scale, with self- rating score of 39% limitation in activity level. Medical history includes R ankle fracture/casted with intermittent pain. With the evaluation: gait is without an assistive device; slight tightness over hamstrings and anterior hip-quads; decrease strength of hip adduction and hip extension motions; single leg standing increases her pain and is unsteady; active hip flexion, IR, ER and knee flexion and extension ranges are WNL and equal to her L; edema over R knee with circumferential measurement at superior and inferior patella, there is a pocket of swelling at inferior-medial patellar area. Skilled PT services are indicated for modalities to decrease pain, therapeutic exercises to increase R hip and knee strength and stability to knee, with education for HEP, pain management Plan of Care Interventions Electrical Stimulation,Hot Pack/Cold Pack, Intermittent Compression Pump,Manual Therapy,Neuro Re-education,Patient/Caregiver Education, Therapeutic Activities,Therapeutic Exercise, Ultrasound,Other Other Interventions taping PT Services Indicated Yes Treatment Frequency and 1-2x/wk for 6 visits Duration These treatments will address the objective and functional deficits as defined above. The patient will be advanced safely and appropriately in order for the patient to progress towards his/her prior level of function. Additional exercises will be introduced and as well as a comprehensive home exercise program upon discharge, if needed, ?to ensure carryover of functional gains achieved in the clinic. This treatment plan has been reviewed and agreement upon by the patient.
--- NOTE | 2025-02-12 15:57 | OPREHPOC ---
Outpatient Therapy Plan of Care This is a Multidisciplinary Plan of Care that may contain components documented by all disciplines (PT, OT, and ST.) PT Problem 1 PT Problem #1 Knowledge Deficit PT Goal 1 Goal / Goal Update *independent with HEP 02-12-25 d/c goal met [employer] Visit 6 Progress Met PT Problem 2 PT Problem #2 Pain PT Goal 1 Goal / Goal Update 1* pt report pain rating at the worst of 5/10 in R knee 02-12-25 d/c goal met [employer] Visit 6 Progress Met PT Problem 3 PT Problem #3 Impaired Strength PT Goal 1 Goal / Goal Update increase strength of R hip extension and adduction to 4+/5 to improve stability to knee joint 02-12-25 d/c goal met [employer] Visit 6 Progress Met PT Problem 4 PT Problem #4 Impaired Flexibility PT Goal 1 Goal / Goal Update increase hamstring length to decrease strain over knee: hamstring length with supine SLR to 75' 02-12-25 d/c goal met Target Visit 6
--- NOTE | 2025-02-12 15:57 | PTOPDC ---
Assessment and note entered by Lien Alvarado, PT Assessment Status Discharge ICD-10 Condition Codes (PT) Pain in right knee M25.561 Other ICD-10 Condition Codes ( OA of R knee PT) Onset about 1 year ago Subjective Information knee is doing better, stronger; have been walking about 40 minutes, 5x/week; doing the exercises; Reported Pain Level Pain Score 0: Self Report Additional Pain Score Comments pain range in the past week 0-2/10; is only taking the over the counter meds 2x/wk on stairs, still do single step pattern on taller stairs and alternate steps on smaller stairs. Assessment PT Clinical Summary Justina Cadena has received a total of 6 PT sessions. She has improved in all areas; with today's assessment: pain rating of 0-2/10; self assessment LE functional scale rating of 24% limitation in activity level; strength of R hip and knee 4+/5; hamstring length with SLR to 75'; education for HEP, self management of pain. The goals were achieved. Discharge PT. She is to continue with HEP and monitor pain with walking and activity. Plan of Care PT Services Indicated No
== END 2025-02-13 09:01 | disposition home or self-care (01) ==
LOC: ANHPT 15:15
PROVIDERS: PCP Family Medicine Adolescent Medicine; Visit Provider Nurse Practitioner
DX: M17.11 Unilateral primary osteoarthritis, right knee (principal)
CPT/HCPCS: 97110; 97161; 97530